=== PATIENT | male | born 1975 | race American Indian/Alaskan Native ===

== ENCOUNTER 2018-11-17 12:45 | Emergency (ER) | payer MEDICAID ==
[2018-11-17 13:03] VITALS: BP 107/71; PULSE 92; RESP 18; TEMP 98.2; O2SAT 95
--- NOTE | 2018-11-17 13:23 | C.PDOC ---
History Of Present Illness Patient reports five year history of intermittent chest pain. States that the pain feels like "lightning" and occurs only when he is sleeping, maybe once or twice during the night, lasting not even a second. He does not get the pain daily, usually once a week to every other day. States that he has mentioned this to his PMD in the past. Denies any other symptoms such as dyspnea, headache, dizziness, nausea/vomiting. He does not currently have chest pain. He denies history of any comorbidities, has no family history of cardiac disease, and does not smoke. Time Seen by Provider: 11/17/18 13:16 Chief Complaint (Nursing): Chest Pain Past Medical History Reviewed: Historical Data, Nursing Documentation, Vital Signs Vital Signs: Last Vital Signs Temp 98.2 F 11/17/18 13:02 Pulse 92 H 11/17/18 13:02 Resp 18 11/17/18 13:02 BP 107/71 11/17/18 13:02 Pulse Ox 95 11/17/18 13:02 - Medical History PMH: No Chronic Diseases Family History: States: Diabetes Denies: CAD - Social History Hx Tobacco Use: No Hx Alcohol Use: Yes Hx Substance Use: No - Immunization History Hx Tetanus Toxoid Vaccination: No Hx Influenza Vaccination: No Hx Pneumococcal Vaccination: No Review Of Systems Except As Marked, All Systems Reviewed And Found Negative. Constitutional: Negative for: Fever Cardiovascular: Negative for: Chest Pain Respiratory: Negative for: Shortness of Breath Gastrointestinal: Negative for: Nausea, Vomiting, Abdominal Pain Skin: Negative for: Rash Neurological: Negative for: Weakness Physical Exam - Physical Exam Appears: Well, Non-toxic, No Acute Distress Skin: Normal Color, Warm, Dry Head: Atraumatic, Normacephalic Eye(s): bilateral: Normal Inspection Oral Mucosa: Moist Chest: Symmetrical Cardiovascular: Rhythm Regular Respiratory: Normal Breath Sounds Gastrointestinal/Abdominal: Normal Exam Extremity: Normal ROM Neurological/Psych: Oriented x3 Gait: Steady ED Course And Treatment ECG: Interpreted By Me ECG Rhythm: Sinus Bradycardia ECG Interpretation: Normal Interpretation Of ECG: Normal axis, normal intervals, no ST/T changes Rate From EC O2 Sat by Pulse Oximetry: 95 Medical Decision Making Medical Decision Making: Patient low risk for KS, has normal EKG, and denies pain at this time. History does not point to cardiac or pulmonary cause of pain. No further evaluation necessary. Disposition - Disposition Disposition: HOME/ ROUTINE Disposition Time: 14:00 Condition: GOOD Additional Instructions: NORM LANIER, thank you for letting us take care of you today. Your provider was Michelle Balderas MD and you were treated for CHEST PAIN. The emergency medical care you received today was directed at your acute symptoms. If you were prescribed any medication, please fill it and take as directed. It may take several days for your symptoms to resolve. Return to the Emergency Department if your symptoms worsen, do not improve, or if you have any other problems. Please contact your doctor or call one of the physicians/clinics you have been referred to that are listed on the Patient Visit Information form that is inclu ded in your discharge packet. Bring any paperwork you were given at discharge with you along with any medications you are taking to your follow up visit. Our treatment cannot replace ongoing medical care by a primary care provider outside of the emergency department. Thank you for allowing the [facility] team to be part of your care today. If you had an X-Ray or CT scan: A Radiologist will review the ED reading if any change in treatment is needed we will contact you. If you had a blood, urine, or wound culture: It will take several days for the results, if any change in treatment is needed we will contact you. If you had an STI test: It will take 48 hours for the results. Please call after 1 week if you have not heard back. Instructions: Chest Pain (DC) Forms: [facility] (Lithuanian) - Clinical Impression Clinical Impression: Chest pain
--- NOTE | 2018-11-20 08:17 | CARD ---
APPROVED REPORT Date of service: 11/17/2018 EKG Measurement Heart [id number] <Conclusion> Normal sinus rhythm Normal ECG
== END 2018-11-17 13:55 | disposition home or self-care (01) ==
LOC: C.ER 12:45
DX: R07.9 Chest pain, unspecified (principal)